=== PATIENT | male | born 1950 | race Caucasian/White ===

== ENCOUNTER 2018-12-18 08:07 | Day surgery (SDC) | payer MEDICARE ==
[~2018-12-18 08:07] MED LIST: Acetaminophen TAB* 325 MG PO ONE; Buffered Lidocaine 1% SYRIN* 1 ML/SYRINGE INTRADERM ONE; Famotidine IV* 10 MG/ML 2 ML (20 mg) IV ONE; Gabapentin CAP(*) 300 MG PO ONE; Lactated Ringers 1000 ML Bag* 1,000 ML IV SCH
[2018-12-18] MEDS ORDERED: Famotidine IV* 10 MG/ML 2 ML (20 mg) ONE (08:38)
[2018-12-18] MEDS ORDERED: Buffered Lidocaine 1% SYRIN* 1 ML/SYRINGE INTRADERM ONE (08:38)
[2018-12-18] MEDS ORDERED: Gabapentin CAP(*) 300 MG ONE (08:38)
[2018-12-18] MEDS ORDERED: Acetaminophen TAB* 325 MG ONE (08:38)
[2018-12-18] MEDS ORDERED: Midazolam* 1 MG/ML 2 ML VIAL (2 MG) ONE (09:24)
[2018-12-18] MEDS ORDERED: fentaNYL* 50 MCG/ML 2 ML VIAL (100 MCG VIAL) ONE (09:24)
[2018-12-18] MEDS ORDERED: Lidocain 1% EPI 1:100,000 * 30 ML MDV ONE (09:55)
[2018-12-18] MEDS ORDERED: Cisatracurium* 2 MG/ML MDV 5 ML ONE (10:10)
[2018-12-18] MEDS ORDERED: Propofol* 10 MG/ML 20 ML BTL ONE (10:23)
[2018-12-18] MEDS ORDERED: Dexamethasone IV* 4 MG/ML 1 ML (4 MG) ONE (10:23)
[2018-12-18] MEDS ORDERED: Succinylcholine* 20 MG/ML 10 ML VIAL ONE (10:23)
[2018-12-18] MEDS ORDERED: PROCHLORPERAZINE INJ 5 MG/ML 2 ML VIAL IV PRN (10:29)
[2018-12-18] MEDS ORDERED: fentaNYL* 50 MCG/ML 2 ML VIAL (100 MCG VIAL) IV PRN (10:29)
[2018-12-18] MEDS ORDERED: diPHENhydraMINE IV* 50 MG/ML 1 ml VIAL (BENADRYL) IV PRN (10:29)
[2018-12-18] MEDS ORDERED: HYDROcodone/ACETAMIN 5-325 MG* 1 TAB PO PRN ×2 (10:29)
[2018-12-18] MEDS ORDERED: Naloxone* 0.4 MG/ML 1 ML VIAL IV PRN (10:29)
[2018-12-18] MEDS ORDERED: Ondansetron INJ* 2 MG/ML VIAL IV PRN (10:29)
[2018-12-18] MEDS ORDERED: Acetaminophen TAB* 325 MG PO PRN (10:29)
[2018-12-18] MEDS ORDERED: DiMENhydriNATE IV* 50 MG/ML VIAL IV PUSH PRN (10:29)
[2018-12-18] MEDS ORDERED: Levalbuterol 0.63MG/3ML NEB* UNIT OF USE INH PRN (10:29)
[2018-12-18 12:21] VITALS: BP 142/81
--- NOTE | 2018-12-18 13:05 | OP ---
DATE OF OPERATION: 12/18/18 - SD DATE OF : 48 SURGEON: Brien Galdamez MD. SOUND PRINTER: Dr. Huerta. 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 OPERATIVE PROCEDURE: Excision of deep neck mass on the right side under general endotracheal anesthesia. COMPLICATIONS: None. DISPOSITION: Good. SPECIMEN: Right neck mass. BLOOD LOSS: Less than 5 mL. DESCRIPTION OF PROCEDURE: The patient was taken to the operating room, prepared for a right superficial parotidectomy. General anesthesia induced and he was orotracheally intubated. A NIM monitor was placed for orbicularis kenneth and orbicularis oculi and the incision was demarcated for a right superficial parotidectomy and injected with 1% lidocaine 1:100,000 epinephrine. He was prepped with Betadine and draped in sterile fashion. 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 Incision was made with a 15 blade through the skin and platysma muscle and then dissection was taken down elevating the superior fascia in a way to protect the marginal mandibular nerve. This brought us right to the mass along the anterior border to the sternocleidomastoid muscle just at the tip of the parotid gland. I was able to do some blunt dissection, bipolar, and we were able to excise the tumor without doing the entire parotidectomy. Hemostasis was ensured, and the wound was closed with 3-0 deep dermal Vicryls and a running locking 4-0 Prolene. The patient tolerated this well. No complications. Transferred to the recovery room in stable condition. [id number]/CPS #: [id number] MTDD
== END 2018-12-18 12:35 | disposition home or self-care (01) ==
LOC: OR 08:07
PROVIDERS: ATTEND Otolaryngology
DX: D11.7 Benign neoplasm of other major salivary glands (principal); Z72.0 Tobacco use; R05 Cough; Z87.442 Personal history of urinary calculi
CPT/HCPCS: 88307; A9270-GY; J0330; J1100; J2250; J2704; J3010

== ENCOUNTER 2019-12-05 10:43 | Emergency (ER) | payer MEDICARE ==
[2019-12-05 12:09] VITALS: BP 145/81
--- NOTE | 2019-12-05 12:54 | UC ---
Complaint Male HPI - HPI Summary HPI Summary: ONSET OF RIGHT GROIN PAIN ABOUT 3 WEEKS AGO AFTER SHOVELING SNOW. SYMPTOMS WERE INTERMITTENT AND MILD. PATIENT THOUGHT HE PULLED A MUSCLE. ABOUT 10 DAYS AGO HE SHOVELED MORE SNOW AND THE PAIN WORSENED. SINCE THEN HE HAS HAD INCREASING RIGHT GROIN PAIN THAT IS WORSE WHEN HE STANDS UP AND WALKS AROUND. BETTER WHEN HE SITS DOWN OR LAYS DOWN. NO NOTICEABLE LUMP. NO PREVIOUS HISTORY OF AN INGUINAL HERNIA. - History of Current Complaint Chief Complaint: UCAbdominalPain Stated Complaint: ABDOMINAL PAIN LEG PAIN Time Seen by Provider: 12/05/19 12:07 Hx Obtained From: Patient Onset/Duration: Gradual Onset, Lasting Weeks, Still Present Severity Initially: Moderate Severity Currently: Moderate Pain Intensity: 7 Pain Scale Used: 0-10 Numeric Location: Groin - RIGHT Character: Sharp Aggravating Factor(s): Straining - STANDING, WALKING Alleviating Factor(s): Other - SITTING, LAYING DOWN Associated Signs And Symptoms: Negative: Back Pain, Fever, Dysuria, Nausea - Allergies/Home Medications Allergies/Adverse Reactions: Allergies Allergy/AdvReac Type Severity Reaction Status Date / Time No Known Allergies Allergy Verified 12/05/19 12:08 Home Medications: Home Medications NK [No Home Medications Reported] 09/16/13 [History Confirmed 12/05/19] PMH/Surg Hx/FS Hx/Imm Hx Previously Healthy: Yes - Surgical History Surgical History: Yes Surgery Procedure, Year, and Place: cleft palate REPAIR, rt ankle ligament surgery 1976,. 2011-RIGHT EYE CATARACT REMOVED WITH LENS IMPLANT. throat lump removed 2018 - Family History Known Family History: Positive: Non-Contributory - Social History Alcohol Use: Daily Alcohol Amount: 1 GLASS OF WINE DAILY Substance Use Type: None Smoking Status (MU): Current Every Day Smoker Type: Cigarettes Amount Used/How Often: <1 PPD Have You Smoked in the Last Year: Yes Review of Systems All Other Systems Reviewed And Are Negative: Yes Constitutional: Positive: Negative Skin: Positive: Negative Respiratory: Positive: Negative Cardiovascular: Positive: Negative Gastrointestinal: Positive: Negative Genitourinary: Positive: Other - RIGHT GROIN PAIN. Negative: Dysuria, Hematuria , Frequency, Urgency Physical Exam Triage Information Reviewed: Yes Appearance: Well-Appearing, No Pain Distress, Well-Nourished Vital Signs: Initial Vital Signs Temp 97.1 F 12/05/19 12:02 Pulse 81 12/05/19 12:02 Resp 16 12/05/19 12:02 BP 145/81 12/05/19 12:02 Pulse Ox 95 12/05/19 12:02 Laboratory Tests 12/05/19 12:57 POC Urine Color Yellow POC Urine Clarity Clear POC Urine pH 5.5 POC Ur Specif [place] 1.015 POC Urine Protein Negative POC Ur Glucose (UA) Negative POC Urine Ketones Negative POC Urine Blood Negative POC Urine Nitrite Negative POC Urine Bilirubin Negative POC Urine Urobilinogen 0.2 POC U Leukocyte Esteras Negative Vital Signs Reviewed: Yes Eyes: Positive: Conjunctiva Clear ENT: Positive: Hearing grossly normal Neck: Positive: Supple Respiratory: Positive: No respiratory distress, No accessory muscle use Cardiovascular: Positive: Pulses Normal Abdomen Description: Positive: Nontender, Soft Male Genital Exam: Positive: Normal Genitalia, Other - NO INGUINAL LAD OR PALPABLE HERNIA. Negative: Hernia Mass, Scrotum Tenderness (R), Scrotum Tenderness (L), Testicular Tenderness (R), Testicular Tenderness (L) Musculoskeletal: Positive: No Edema Neurological: Positive: Alert Psychological: Positive: Age Appropriate Behavior Skin: Negative: Breakdown Complaint Male Course/Dx - Course Course Of Treatment: BASED ON PATIENT'S HISTORY AND DESCRIPTION OF SYMPTOMS I'M CONCERNED THAT HE IS DEVELOPING A RIGHT INGUINAL HERNIA. NO PALPABLE MASS ON EXAM TODAY HOWEVER IT MAY BE EARLY. RECOMMEND TRANSFER TO THE ER FOR IMAGING AND FURTHER EVALUATION. PATIENT STATES HE WILL THINK ABOUT IT. I DISCUSSED WITH HIM THAT IF HIS PAIN CONTINUES TO WORSEN OR BECOMES CONSTANT THAT HE COULD HAVE AN INCARCERATED HERNIA WHICH IS A SURGICAL EMERGENCY AND IF LEFT UNTREATED CAN LEAD TO A POOR OUTCOME. PATIENT VERBALIZED UNDERSTANDING AND SAYS HE WILL GO TO THE ER AT A LATER TIME. I CALLED THE PATIENT'S PCP OFFICE (DR. OVALLE) AND NOTIFIED THEM OF THE PATIENT'S VISIT HERE. THEY TELL ME THAT HE CALLED THEIR OFFICE WELL AND THEY ADVISED HIM TO GO TO THE EMERGENCY ROOM ALSO. - Differential Dx/Diagnosis Provider Diagnosis: Right inguinal pain Discharge ED - Sign-Out/Discharge Documenting (check all that apply): Patient Departure All imaging exams completed and their final reports reviewed: No Studies - Discharge Plan Condition: Stable Disposition: TRANS [facility] CARE [facility] Patient Education Materials: Inguinal Hernia (ED), Groin Pain (ED) Referrals: Lisa Ovalel MD [Primary Care Provider] - Additional Instructions: BASED ON YOUR SYMPTOMS I AM CONCERNED THAT YOU MAY HAVE AN EARLY INGUINAL HERNIA. WE ARE UNABLE TO ADEQUATELY EVALUATE FOR THIS IN THE URGENT CARE. I RECOMMEND THAT YOU GO [place] [facility] [place] EVALUATION TO EITHER CONFIRM THIS DIAGNOSIS OR RULE IT OUT. IF THE PAIN BECOMES WORSE OR DOES NOT RESOLVE WHEN YOU SIT/LAY DOWN THE HERNIA COULD BE BECOMING STUCK WHICH IS A SURGICAL EMERGENCY. - Billing Disposition and Condition Condition: STABLE Disposition: Trans Higher Lvl of Care Fac
== END 2019-12-05 13:18 | disposition short-term general hospital (02) ==
LOC: UCEAST 10:43
DX: R10.30 Lower abdominal pain, unspecified (principal); F17.210 Nicotine dependence, cigarettes, uncomplicated; M79.606 Pain in leg, unspecified
CPT/HCPCS: 81003; 99212; G0463

== ENCOUNTER 2019-12-05 14:54 | Emergency (ER) | payer MEDICARE ==
--- NOTE | 2019-12-05 15:37 | ED ---
GI/ HPI - HPI Summary HPI Summary: 69-year-old male presents with intermittent right inguinal pain for the past couple weeks. Started when he started shoveling. States he only hurts when he walks. He has no masses to the area. No nausea vomiting. No bowel pain. No urinary symptoms. No testicular pain. No diarrhea constipation. He does not have pain when sitting or standing. No history of a hernia. No history of surgery to this area. Has no medical conditions. - History of Current Complaint Chief Complaint: EDGeneral Time Seen by Provider: 12/05/19 15:31 Stated Complaint: GROIN PAIN PER PT Pain Intensity: 7 - Allergy/Home Medications Allergies/Adverse Reactions: Allergies Allergy/AdvReac Type Severity Reaction Status Date / Time No Known Allergies Allergy Verified 12/05/19 15:12 Home Medications: Home Medications NK [No Home Medications Reported] 12/05/19 [History Confirmed 12/05/19] PMH/Surg Hx/FS Hx/Imm Hx Endocrine/Hematology History: Denies: Hx Diabetes Cardiovascular History: Denies: Hx Hypertension - BORDERLINE, Hx Pacemaker/ICD, Other Cardiovascular Problems/Disorders Respiratory History: Denies: Other Respiratory Problems/Disorders GI History: Denies: Other GI Disorders History: Reports: Hx Kidney Stones - X2- IN THE 1970S Denies: Hx Dialysis, Hx Renal Disease Musculoskeletal History: Denies: Hx Rheumatoid Arthritis, Hx Osteoporosis Sensory History: Reports: Hx Cataracts - RIGHT EYE, Hx Contacts or Glasses - DRIVING GLASSES Denies: Hx Hearing Aid Opthamlomology History: Reports: Hx Cataracts - RIGHT EYE, Hx Contacts or Glasses - DRIVING GLASSES Neurological History: Denies: Other Neuro Impairments/Disorders Psychiatric History: Denies: Hx Panic Disorder - Surgical History Surgery Procedure, Year, and Place: cleft palate REPAIR, rt ankle ligament surgery 1976,. 2012-RIGHT EYE CATARACT REMOVED WITH LENS IMPLANT. throat lump removed 2019 Hx Anesthesia Reactions: No Infectious Disease History: No Infectious Disease History: Denies: Traveled Outside the [place] in Last 30 Days - Family History Known Family History: Positive: Non-Contributory - Social History Alcohol Use: Daily Alcohol Amount: 1 GLASS OF WINE DAILY Substance Use Type: Reports: None Hx Tobacco Use: Yes Smoking Status (MU): Current Every Day Smoker Type: Cigarettes Amount Used/How Often: <1 PPD Have You Smoked in the Last Year: Yes Review of Systems Negative: Fever Negative: Chest Pain Negative: Shortness Of Breath Positive: Other - right inguinal pain. Negative: Abdominal Pain, Vomiting, Diarrhea, Nausea All Other Systems Reviewed And Are Negative: Yes Physical Exam Triage Information Reviewed: Yes Vital Signs On Initial Exam: Initial Vitals Temp Pulse Resp BP Pulse Ox 98.1 F 96 18 160/93 95 12/05/19 15:08 12/05/19 15:08 12/05/19 15:08 12/05/19 15:08 12/05/19 15:08 Vital Signs Reviewed: Yes Appearance: Positive: Well-Appearing Skin: Positive: Warm, Dry Head/Face: Positive: Normal Head/Face Inspection Eyes: Positive: Normal, Conjunctiva Clear ENT: Positive: Pharynx normal Respiratory/Lung Sounds: Positive: Clear to Auscultation, Breath Sounds Present Cardiovascular: Positive: Normal, RRR Abdomen Description: Positive: Nontender, Soft, Other: - nontender in right inguinal area, no mass felt Bowel Sounds: Positive: Present Musculoskeletal: Positive: Normal Neurological: Positive: Normal Psychiatric: Positive: Normal Procedures - Sedation Patient Received Moderate/Deep Sedation with Procedure: No Diagnostics - Vital Signs Vital Signs Temp Pulse Resp BP Pulse Ox 12/05/19 15:08 98.1 F 96 18 160/93 95 - Laboratory Lab Statement: Any lab studies that have been ordered have been reviewed, and results considered in the medical decision making process. - Ultrasound No standard instances Ultrasound Interpretation Completed By: Radiologist Summary of Ultrasound Findings: #. In the general region of discomfort there is a fat-containing probable direct inguinal hernia visible on Valsalva maneuver measuring up to 2.1 cm maximum dimension which reduces with release of Valsalva maneuver. The hernia exits through an approximate 1 cm diameter fascia defect. No bowel containing hernia evident. GIGU Course/Dx - Course Course Of Treatment: 69-year-old male presents with intermittent right inguinal pain for the past couple weeks. Started when he started shoveling. States he only hurts when he walks. He has no masses to the area. No nausea vomiting. No bowel pain. No urinary symptoms. No testicular pain. No diarrhea constipation. He does not have pain when sitting or standing. No history of a hernia. No history of surgery to this area. Has no medical conditions. On exam no masses felt. Nontender abdomen. Ultrasound shows hernia reducible. gave referral to surgery. told not to lift anything. patient understand and agrees with plan. - Diagnoses Provider Diagnoses: Inguinal hernia Discharge ED - Sign-Out/Discharge Documenting (check all that apply): Patient Departure - Discharge Plan Condition: Good Disposition: HOME Patient Education Materials: Inguinal Hernia (ED) Referrals: Lisa Ovalle MD [Primary Care Provider] - Todd Easton MD [Medical Doctor] - Additional Instructions: follow up with surgery place ice on the area take tyenlol as needed for pain avoid lifting objects Return to ED if develop any new or worsening symptoms - Billing Disposition and Condition Condition: GOOD Disposition: Home
[2019-12-05 17:05] VITALS: BP 143/88
== END 2019-12-05 17:04 | disposition home or self-care (01) ==
LOC: ED 14:54
DX: K40.90 Unilateral inguinal hernia, without obstruction or gangrene, not specified as recurrent (principal); F17.210 Nicotine dependence, cigarettes, uncomplicated
CPT/HCPCS: 76705; 99282

== ENCOUNTER 2020-05-03 12:02 | Inpatient (IN) ==
[2020-05-03] MEDS ORDERED: Dexamethasone IV 4 MG/ML VIAL 1 ml VIAL IV SLOW PU ONE (13:35)
[2020-05-03] MEDS ORDERED: levETIRAcetam 1000MG IVPREMIX 1,000 MG/100 ML BAG IVPB ONE (14:02)
[2020-05-03] MEDS ORDERED: Ondansetron 4 mg VIAL 2 MG/ML 2 ml VIAL IV PRN (14:05)
[2020-05-03] MEDS ORDERED: Nicotine GUM 4MG FRUIT FLAVOR PO PRN (14:17)
[2020-05-03 14:19] LABS: ALT 12 U/L (7-52); AST 12 U/L (13-39); Albumin 3.3 g/dL (3.2-5.2); Albumin/Globulin Ratio 1.2 (1-3); Alkaline Phosphatase 94 U/L (34-104); Anion Gap 4 mmol/L (2-11); BUN/Creatinine Ratio 12.7 (8-20); Blood Urea Nitrogen 10 mg/dL (6-24); CO2 Carbon Dioxide 28 mmol/L (22-32); Calcium 8.7 mg/dL (8.6-10.3); Chloride 104 mmol/L (101-111); EGFR African American 117.3 (>60); Globulin 2.7 g/dL (2-4); Glucose 103 mg/dL (70-100); Potassium 4.2 mmol/L (3.5-5.0); Sodium 136 mmol/L (135-145)
[2020-05-03 14:39] LABS: Troponin I 0.07 ng/mL (<0.03)
[2020-05-03 14:43] LABS: Alcohol, S < 10 mg/dL (<10)
[2020-05-03 14:44] LABS: ABS Basophils 0.1 10^3/ul (0-0.2); ABS Eosinophils 0.4 10^3/ul (0-0.6); ABS Lymphocytes 0.5 10^3/ul (1.0-4.8); ABS Neutrophils 13.7 10^3/ul (1.5-7.7); Eosinophil % 2.2 %; Hematocrit 39 % (42-52); Hemoglobin 13.2 g/dL (14.0-18.0); Lymphocyte % 3.2 %; Mean Corpuscular HGB Conc 34 g/dL (31-36); Mean Corpuscular Hemoglobin 30 pg (27-31); Mean Corpuscular Volume 89 fL (80-94); Mean Platelet Volume 8.2 fL (7.4-10.4); Platelet Count 271 10^3/uL (150-450); Red Blood Count 4.44 10^6 /uL (4.18-5.48); Red Cell Distribution Width 14 % (10-15); White Blood Count 15.6 10^3/uL (3.5-10.8)
[2020-05-03 14:44] LABS: Urine Appearance Clear; Urine Bilirubin Negative (Negative); Urine Blood 1+ (Negative); Urine Color Yellow; Urine Glucose Negative (Negative); Urine Ketones Trace (Negative); Urine Nitrite Negative (Negative); Urine Protein Negative (Negative); Urine Specific Gravity 1.008 (1.010-1.030); Urine Urobilinogen Negative (Negative)
[2020-05-03] MEDS ORDERED: Iohexol 300 (CONTRAST) 10 ML SDV IV ONE (15:00)
[2020-05-03 15:18] LABS: Urine Bacteria Absent (Absent); Urine Red Blood Cell Trace(0-2/hpf) (Absent); Urine White Blood Cell Trace(0-5/hpf) (Absent)
[2020-05-03 15:36] LABS: Vitamin B12 266 pg/mL (180-914)
[2020-05-03] MEDS ORDERED: Gadoteridol (CONTRAST) 279.3 MG/ML 10 ML IV ONE (16:30)
[2020-05-03] MEDS ORDERED: Dexamethasone IV 4 MG/ML 5 ML VIAL (20 MG) IVPB SCH (20:00)
[2020-05-03] MEDS: NS 0.9% 1000 ml BAG 1,000 ML IV SCH (20:22)
[2020-05-03] MEDS: Dexamethasone IV 4 MG/ML 5 ML VIAL (20 MG) SCH (22:33)
[2020-05-03] MEDS: Enoxaparin 40 MG/0.4 ML SYR SUBCUT SCH (22:33)
[2020-05-03] MEDS: Nicotine PATCH 14 MG/24 HR PATCH TRANSDERM SCH (23:00)
[2020-05-04] MEDS: levETIRAcetam 500 MG IVPREMIX 500 MG/100 ML BAG IV SCH ×2 (04:00→14:09)
[2020-05-04] MEDS: Dexamethasone IV 4 MG/ML 5 ML VIAL (20 MG) SCH ×4 (05:29→20:57)
[2020-05-04] MEDS ORDERED: Perflutren Lipid Microsphere 3 ML VIAL ONE (08:01)
[2020-05-04 08:51] LABS: Hematocrit 40 % (42-52); Hemoglobin 13.4 g/dL (14.0-18.0); Mean Corpuscular HGB Conc 33 g/dL (31-36); Mean Corpuscular Hemoglobin 30 pg (27-31); Mean Corpuscular Volume 89 fL (80-94); Mean Platelet Volume 8.1 fL (7.4-10.4); Platelet Count 284 10^3/uL (150-450); Red Blood Count 4.51 10^6 /uL (4.18-5.48); Red Cell Distribution Width 14 % (10-15); White Blood Count 18.2 10^3/uL (3.5-10.8)
[2020-05-04 09:10] LABS: Anion Gap 13 mmol/L (2-11); BUN/Creatinine Ratio 18.7 (8-20); Blood Urea Nitrogen 14 mg/dL (6-24); CO2 Carbon Dioxide 21 mmol/L (22-32); Calcium 8.2 mg/dL (8.6-10.3); Chloride 104 mmol/L (101-111); EGFR African American 124.6 (>60); Glucose 124 mg/dL (70-100); Magnesium 1.8 mg/dL (1.9-2.7); Potassium 4.1 mmol/L (3.5-5.0); Sodium 138 mmol/L (135-145)
[2020-05-04 09:17] LABS: ABS Lymphocytes 0.4 10^3/ul (1.0-4.8); ABS Monocytes 0.3 10^3/ul (0-0.8); ABS Neutrophils 17.5 10^3/ul (1.5-7.7); Eosinophil % 0.1 %; Lymphocyte % 2.2 %
[2020-05-04] MEDS: Nicotine PATCH 14 MG/24 HR PATCH TRANSDERM SCH (09:36)
[2020-05-04] MEDS: Cyanocobalamin INJ 1,000 MCG/ML VIAL 1 ML VIAL IM SCH (09:37)
[2020-05-04 09:41] LABS: Troponin I 0.05 ng/mL (<0.03)
[2020-05-04] MEDS ORDERED: Magnesium Sulfate 2 gm BAG 2 GM/50 ML BAG IVPB ONE (12:09)
[2020-05-04] MEDS: Enoxaparin 40 MG/0.4 ML SYR SUBCUT SCH (14:04)
[2020-05-04] MEDS: NS 0.9% 1000 ml BAG 1,000 ML IV SCH (14:11)
[2020-05-04] MEDS ORDERED: Gadoteridol (CONTRAST) 279.3 MG/ML 10 ML IV ONE (18:02)
[2020-05-05] MEDS: levETIRAcetam 500 MG IVPREMIX 500 MG/100 ML BAG IV SCH ×2 (02:42→16:22)
[2020-05-05] MEDS: Dexamethasone IV 4 MG/ML 5 ML VIAL (20 MG) SCH ×4 (04:53→21:47)
[2020-05-05] MEDS ORDERED: Lactated Ringers 1000 ml BAG 1,000 ML IV SCH (06:00)
[2020-05-05] MEDS ORDERED: Buffered Lidocaine 1% SYRIN 1 ml INTRADERM ONE (06:00)
[2020-05-05 08:09] LABS: Hematocrit 38 % (42-52); Hemoglobin 12.6 g/dL (14.0-18.0); Mean Corpuscular HGB Conc 34 g/dL (31-36); Mean Corpuscular Hemoglobin 30 pg (27-31); Mean Corpuscular Volume 89 fL (80-94); Mean Platelet Volume 8.2 fL (7.4-10.4); Platelet Count 286 10^3/uL (150-450); Red Blood Count 4.22 10^6 /uL (4.18-5.48); Red Cell Distribution Width 14 % (10-15); White Blood Count 23.5 10^3/uL (3.5-10.8)
[2020-05-05 08:16] LABS: INR 0.99 (0.82-1.09)
[2020-05-05 08:28] LABS: BUN/Creatinine Ratio 23.9 (8-20); Calcium 8.1 mg/dL (8.6-10.3); EGFR African American 141.9 (>60); EGFR Non-African American 117.3 (>60); Potassium 4.4 mmol/L (3.5-5.0)
[2020-05-05] MEDS: Cyanocobalamin INJ 1,000 MCG/ML VIAL 1 ML VIAL IM SCH (10:09)
[2020-05-05] MEDS: Nicotine PATCH 14 MG/24 HR PATCH TRANSDERM SCH (10:25)
[2020-05-05] MEDS: Enoxaparin 40 MG/0.4 ML SYR SUBCUT SCH (16:23)
[2020-05-06] MEDS: levETIRAcetam 500 MG IVPREMIX 500 MG/100 ML BAG IV SCH ×2 (02:26→14:58)
[2020-05-06] MEDS: Dexamethasone IV 4 MG/ML 5 ML VIAL (20 MG) SCH ×3 (04:26→14:58)
[2020-05-06 05:12] LABS: Hematocrit 37 % (42-52); Hemoglobin 12.2 g/dL (14.0-18.0); Mean Corpuscular HGB Conc 33 g/dL (31-36); Mean Corpuscular Hemoglobin 29 pg (27-31); Mean Corpuscular Volume 89 fL (80-94); Mean Platelet Volume 7.8 fL (7.4-10.4); Platelet Count 264 10^3/uL (150-450); Red Blood Count 4.21 10^6 /uL (4.18-5.48); Red Cell Distribution Width 14 % (10-15); White Blood Count 19.5 10^3/uL (3.5-10.8)
[2020-05-06 05:27] LABS: BUN/Creatinine Ratio 32.8 (8-20); EGFR African American 158.1 (>60); EGFR Non-African American 130.7 (>60); Potassium 4.6 mmol/L (3.5-5.0)
[2020-05-06] MEDS: Nicotine PATCH 14 MG/24 HR PATCH TRANSDERM SCH (10:09)
[2020-05-06] MEDS: Cyanocobalamin INJ 1,000 MCG/ML VIAL 1 ML VIAL IM SCH (10:10)
[2020-05-06 11:19] VITALS: BP 120/56
[2020-05-06] MEDS: Enoxaparin 40 MG/0.4 ML SYR SUBCUT SCH (14:58)
== END 2020-05-06 16:10 | disposition home or self-care (01) | DRG 54 ==
LOC: ED 12:02 → MED 12:02 → OBSVTOIN 20:05
PROVIDERS: ADMIT Internal Medicine; ATTEND Internal Medicine

== ENCOUNTER 2020-05-21 10:10 | Inpatient (IN) ==
[2020-05-21 11:02] LABS: Hematocrit 44 % (42-52); Hemoglobin 14.6 g/dL (14.0-18.0); Mean Corpuscular HGB Conc 33 g/dL (31-36); Mean Corpuscular Hemoglobin 29 pg (27-31); Mean Corpuscular Volume 89 fL (80-94); Mean Platelet Volume 8.3 fL (7.4-10.4); Platelet Count 172 10^3/uL (150-450); Red Blood Count 4.97 10^6 /uL (4.18-5.48); Red Cell Distribution Width 14 % (10-15); White Blood Count 33.6 10^3/uL (3.5-10.8)
[2020-05-21 11:08] LABS: ABS Eosinophils 0.3 10^3/ul (0-0.6); ABS Lymphocytes 0.4 10^3/ul (1.0-4.8); ABS Monocytes 0.9 10^3/ul (0-0.8); ABS Neutrophils 30.7 10^3/ul (1.5-7.7); Eosinophil % 0.9 %; Lymphocyte % 1.4 %
[2020-05-21 11:14] LABS: Albumin 3.3 g/dL (3.2-5.2); Albumin/Globulin Ratio 1.4 (1-3); BUN/Creatinine Ratio 31.4 (8-20); Calcium 8.6 mg/dL (8.6-10.3); EGFR African American 134.9 (>60); EGFR Non-African American 111.5 (>60); Globulin 2.4 g/dL (2-4); Potassium 4.6 mmol/L (3.5-5.0); Total Bilirubin 0.9 mg/dL (0.2-1.0); Total Protein 5.7 g/dL (6.4-8.9)
[2020-05-21 12:38] LABS: Urine Appearance Clear; Urine Bilirubin Negative (Negative); Urine Blood Negative (Negative); Urine Color Yellow; Urine Glucose Negative (Negative); Urine Ketones Negative (Negative); Urine Nitrite Negative (Negative); Urine Protein Negative (Negative); Urine Specific Gravity 1.023 (1.010-1.030); Urine Urobilinogen Negative (Negative)
[2020-05-21] MEDS ORDERED: Piperacillin/Tazobac ADVAN 3.375 GM in NS 0.9% 100 ml BAG 100 ML IVPB ONE (14:39)
[2020-05-21] MEDS ORDERED: Zosyn per Pharmacy NOTE FOLLOW UP SCH (15:00)
[2020-05-21] MEDS ORDERED: Ondansetron 4 mg VIAL 2 MG/ML 2 ml VIAL IV PRN (16:27)
[2020-05-21] MEDS: levETIRAcetam 500 MG IVPREMIX 500 MG/100 ML BAG IV SCH (18:09)
[2020-05-21] MEDS: NS 0.9% 1000 ml BAG 1,000 ML IV SCH (18:35)
[2020-05-21] MEDS: ZOSYN 3.375 GM Q8H per EXTENDED INFUSION IV SCH (21:09)
[2020-05-21] MEDS: Dexamethasone IV 4 MG/ML VIAL 1 ml VIAL IV SLOW PU SCH (21:10)
[2020-05-22] MEDS: NS 0.9% 1000 ml BAG 1,000 ML IV SCH (03:18)
[2020-05-22] MEDS: levETIRAcetam 500 MG IVPREMIX 500 MG/100 ML BAG IV SCH ×2 (04:39→16:58)
[2020-05-22 04:49] LABS: Hematocrit 37 % (42-52); Hemoglobin 12.4 g/dL (14.0-18.0); Mean Corpuscular HGB Conc 34 g/dL (31-36); Mean Corpuscular Hemoglobin 30 pg (27-31); Mean Corpuscular Volume 89 fL (80-94); Mean Platelet Volume 8.3 fL (7.4-10.4); Platelet Count 131 10^3/uL (150-450); Red Blood Count 4.16 10^6 /uL (4.18-5.48); Red Cell Distribution Width 14 % (10-15); White Blood Count 25.8 10^3/uL (3.5-10.8)
[2020-05-22 04:57] LABS: Albumin 2.8 g/dL (3.2-5.2); Albumin/Globulin Ratio 1.3 (1-3); BUN/Creatinine Ratio 27.3 (8-20); Calcium 8.2 mg/dL (8.6-10.3); EGFR African American 178.2 (>60); EGFR Non-African American 147.3 (>60); Globulin 2.1 g/dL (2-4); Potassium 4.4 mmol/L (3.5-5.0); Total Bilirubin 0.7 mg/dL (0.2-1.0); Total Protein 4.9 g/dL (6.4-8.9)
[2020-05-22] MEDS: ZOSYN 3.375 GM Q8H per EXTENDED INFUSION IV SCH ×3 (05:03→21:18)
[2020-05-22 09:00] LABS: ABS Basophils 0.1 10^3/ul (0-0.2); ABS Eosinophils 0.2 10^3/ul (0-0.6); ABS Lymphocytes 0.3 10^3/ul (1.0-4.8); ABS Monocytes 0.7 10^3/ul (0-0.8); ABS Neutrophils 24.5 10^3/ul (1.5-7.7); Eosinophil % 0.6 %; Lymphocyte % 1.1 %
[2020-05-22] MEDS: Dexamethasone IV 4 MG/ML VIAL 1 ml VIAL IV SLOW PU SCH ×2 (09:23→21:18)
[2020-05-22] MEDS ORDERED: Buffered Lidocaine 1% SYRIN 1 ml INTRADERM ONE ×2 (11:14→11:40)
[2020-05-22] MEDS ORDERED: Famotidine IV 10 MG/ML 2 ml VIAL (20 mg) IV ONE (11:14)
[2020-05-22] MEDS ORDERED: Bupivacaine 0.25% SDV 30 ML ONE (11:30)
[2020-05-22] MEDS ORDERED: Midazolam 2 mg/2 ml VIAL 1 mg/ml 2 ml VIAL (2 mg) ONE ×2 (11:47→12:18)
[2020-05-22] MEDS ORDERED: Lactated Ringers 1000 ml BAG 1,000 ML IV SCH (12:00)
[2020-05-22] MEDS ORDERED: Famotidine IV 10 MG/ML 2 ml VIAL (20 mg) ONE (12:12)
[2020-05-22] MEDS ORDERED: Rocuronium 50 mg VIAL 10 mg/ml 5 ml VIAL (50 mg) ONE (12:17)
[2020-05-22] MEDS ORDERED: fentaNYL 100 mcg/2 ml 50 MCG/ML VIAL ONE ×3 (12:17→15:26)
[2020-05-22] MEDS ORDERED: Lidocaine 2% PF 5 ML VIAL ONE (12:17)
[2020-05-22] MEDS ORDERED: Propofol 10 MG/ML 20 ML BTL ONE (12:17)
[2020-05-22] MEDS ORDERED: EPHEDrine (Pressors) 50 MG/ML VIAL ONE (12:44)
[2020-05-22] MEDS ORDERED: Acetaminophen IV 1 GM/100ML 100 ML ONE (14:22)
[2020-05-22] MEDS ORDERED: Ondansetron 4 mg VIAL 2 MG/ML 2 ml VIAL ONE (14:27)
[2020-05-22] MEDS ORDERED: Ondansetron 4 mg VIAL 2 MG/ML 2 ml VIAL IV PRN (14:33)
[2020-05-22] MEDS ORDERED: Naloxone 0.4 mg VIAL 0.4 mg/ml 1 ml VIAL IV PRN (14:33)
[2020-05-22] MEDS ORDERED: DiMENhydriNATE IV 50 mg/ml 1 ml VIAL IV PUSH PRN (14:33)
[2020-05-22] MEDS ORDERED: Naloxone 0.4 mg VIAL 0.4 mg/ml 1 ml VIAL IV PUSH PRN (15:10)
[2020-05-22] MEDS: fentaNYL 100 mcg/2 ml 50 MCG/ML VIAL IV PRN ×4 (15:29→16:02)
[2020-05-22] MEDS ORDERED: D5W 1/2 NS 1000 ml BAG 1,000 ML IV SCH (16:00)
[2020-05-22] MEDS ORDERED: HYDROmorphone PCA 20 MG/20 ML PCA.SYRING PCA SCH (16:00)
[2020-05-22] MEDS: D5NS 0.9% 1000 ml BAG 1,000 ML IV SCH (16:18)
[2020-05-22 19:17] LABS: Urine Appearance Clear; Urine Bilirubin Negative (Negative); Urine Blood 3+ (Negative); Urine Color Yellow; Urine Glucose Negative (Negative); Urine Ketones Negative (Negative); Urine Nitrite Negative (Negative); Urine Protein Negative (Negative); Urine Specific Gravity 1.027 (1.010-1.030); Urine Urobilinogen Negative (Negative)
[2020-05-22 19:40] LABS: Urine Bacteria Absent (Absent); Urine Red Blood Cell 3+(>10/hpf) (Absent); Urine White Blood Cell Absent (Absent)
[2020-05-23] MEDS: D5NS 0.9% 1000 ml BAG 1,000 ML IV SCH ×3 (00:58→16:21)
[2020-05-23] MEDS: levETIRAcetam 500 MG IVPREMIX 500 MG/100 ML BAG IV SCH ×2 (04:54→17:27)
[2020-05-23] MEDS: ZOSYN 3.375 GM Q8H per EXTENDED INFUSION IV SCH ×3 (04:54→21:20)
[2020-05-23 07:28] LABS: Albumin 2.2 g/dL (3.2-5.2); Albumin/Globulin Ratio 1.2 (1-3); BUN/Creatinine Ratio 17.7 (8-20); Calcium 7.6 mg/dL (8.6-10.3); EGFR African American 155.2 (>60); EGFR Non-African American 128.3 (>60); Globulin 1.9 g/dL (2-4); Potassium 4.4 mmol/L (3.5-5.0); Total Bilirubin 0.6 mg/dL (0.2-1.0); Total Protein 4.1 g/dL (6.4-8.9)
[2020-05-23 07:49] LABS: Hematocrit 34 % (42-52); Hemoglobin 11.3 g/dL (14.0-18.0); Mean Corpuscular HGB Conc 34 g/dL (31-36); Mean Corpuscular Hemoglobin 30 pg (27-31); Mean Corpuscular Volume 90 fL (80-94); Mean Platelet Volume 8.4 fL (7.4-10.4); Platelet Count 105 10^3/uL (150-450); Red Blood Count 3.76 10^6 /uL (4.18-5.48); Red Cell Distribution Width 14 % (10-15); White Blood Count 15.2 10^3/uL (3.5-10.8)
[2020-05-23] MEDS: Dexamethasone IV 4 MG/ML VIAL 1 ml VIAL IV SLOW PU SCH (09:17)
[2020-05-23] MEDS ORDERED: HYDROmorphone 1 MG/1 ML SYRINGE IV PRN (11:08)
[2020-05-23] MEDS ORDERED: Acetaminophen IV 1 GM/100ML 100 ML IVPB SCH (11:30)
[2020-05-23] MEDS: Pantoprazole VIAL 40 MG VIAL IV SCH (11:44)
[2020-05-23] MEDS: Enoxaparin 40 MG/0.4 ML SYR SUBCUT SCH (11:44)
[2020-05-23] MEDS: Acetaminophen IV 1 GM/100ML 100 ML IVPB SCH ×2 (13:16→21:21)
[2020-05-23] MEDS: TPN 24 HR with D10W 1000 ml BAG 1,000 ML, Amino Acid Infusion 10% 850 ML, Sterile Water... IV SCH (17:24)
[2020-05-23] MEDS ORDERED: Lorazepam PYXIS KEY PRN (19:43)
[2020-05-23] MEDS ORDERED: Dexamethasone IV 4 MG/ML VIAL 1 ml VIAL IV SLOW PU SCH (21:00)
[2020-05-23] MEDS: LORazepam 2 mg VIAL 1 ml IV PUSH PRN (21:20)
[2020-05-24] MEDS: D5NS 0.9% 1000 ml BAG 1,000 ML IV SCH (01:09)
[2020-05-24] MEDS: levETIRAcetam 500 MG IVPREMIX 500 MG/100 ML BAG IV SCH ×2 (04:50→17:45)
[2020-05-24] MEDS: ZOSYN 3.375 GM Q8H per EXTENDED INFUSION IV SCH ×3 (05:14→20:56)
[2020-05-24] MEDS: Acetaminophen IV 1 GM/100ML 100 ML IVPB SCH (05:44)
[2020-05-24 06:11] LABS: ABS Eosinophils 0.3 10^3/ul (0-0.6); ABS Lymphocytes 0.2 10^3/ul (1.0-4.8); ABS Monocytes 0.5 10^3/ul (0-0.8); Eosinophil % 1.7 %; Hematocrit 32 % (42-52); Hemoglobin 10.4 g/dL (14.0-18.0); Mean Corpuscular HGB Conc 33 g/dL (31-36); Mean Corpuscular Hemoglobin 30 pg (27-31); Mean Corpuscular Volume 91 fL (80-94); Mean Platelet Volume 8.2 fL (7.4-10.4); Platelet Count 107 10^3/uL (150-450); Red Cell Distribution Width 15 % (10-15); White Blood Count 15.9 10^3/uL (3.5-10.8)
[2020-05-24 06:33] LABS: Albumin 2.1 g/dL (3.2-5.2); Albumin/Globulin Ratio 1.2 (1-3); BUN/Creatinine Ratio 25.5 (8-20); Calcium 6.9 mg/dL (8.6-10.3); EGFR African American 194.4 (>60); EGFR Non-African American 160.7 (>60); Globulin 1.8 g/dL (2-4); Magnesium 1.5 mg/dL (1.9-2.7); Phosphorus 1.7 mg/dL (2.5-5.0); Potassium 3.6 mmol/L (3.5-5.0); Total Bilirubin 0.4 mg/dL (0.2-1.0); Total Protein 3.9 g/dL (6.4-8.9)
[2020-05-24] MEDS ORDERED: NS 0.9% 500 ml BAG 500 ML IV ONE (07:15)
[2020-05-24 09:00] LABS: BUN/Creatinine Ratio 27.5 (8-20); Calcium 7.8 mg/dL (8.6-10.3); EGFR African American 194.4 (>60); EGFR Non-African American 160.7 (>60); Potassium 3.9 mmol/L (3.5-5.0)
[2020-05-24] MEDS ORDERED: Dexamethasone IV 4 MG/ML VIAL 1 ml VIAL IV SLOW PU SCH (09:00)
[2020-05-24] MEDS ORDERED: Dexamethasone IV 4 MG/ML VIAL 1 ml VIAL ONE (10:39)
[2020-05-24] MEDS: Enoxaparin 40 MG/0.4 ML SYR SUBCUT SCH (10:47)
[2020-05-24] MEDS: Pantoprazole VIAL 40 MG VIAL IV SCH (10:48)
[2020-05-24] MEDS: Dexamethasone IV 4 MG/ML VIAL 1 ml VIAL IV SLOW PU SCH ×2 (10:49→20:54)
[2020-05-24] MEDS: TPN 24 HR with D10W 1000 ml BAG 1,000 ML, Amino Acid Infusion 10% 850 ML, Sterile Water... IV SCH (17:45)
[2020-05-24] MEDS: LORazepam 2 mg VIAL 1 ml IV PUSH PRN (21:09)
[2020-05-25] MEDS: levETIRAcetam 500 MG IVPREMIX 500 MG/100 ML BAG IV SCH ×2 (05:02→17:37)
[2020-05-25] MEDS: ZOSYN 3.375 GM Q8H per EXTENDED INFUSION IV SCH ×3 (05:37→20:05)
[2020-05-25 06:06] LABS: Hematocrit 32 % (42-52); Hemoglobin 10.7 g/dL (14.0-18.0); Mean Corpuscular HGB Conc 34 g/dL (31-36); Mean Corpuscular Hemoglobin 30 pg (27-31); Mean Corpuscular Volume 88 fL (80-94); Mean Platelet Volume 8.6 fL (7.4-10.4); Platelet Count 106 10^3/uL (150-450); Red Blood Count 3.57 10^6 /uL (4.18-5.48); Red Cell Distribution Width 14 % (10-15); White Blood Count 14.1 10^3/uL (3.5-10.8)
[2020-05-25 06:21] LABS: Albumin 2.4 g/dL (3.2-5.2); Albumin/Globulin Ratio 1.1 (1-3); EGFR African American 198.9 (>60); EGFR Non-African American 164.4 (>60); Globulin 2.2 g/dL (2-4); Magnesium 1.8 mg/dL (1.9-2.7); Phosphorus 2.6 mg/dL (2.5-5.0); Potassium 4.1 mmol/L (3.5-5.0); Total Bilirubin 0.4 mg/dL (0.2-1.0); Total Protein 4.6 g/dL (6.4-8.9)
[2020-05-25 07:20] LABS: ABS Eosinophils 0.2 10^3/ul (0-0.6); ABS Lymphocytes 0.2 10^3/ul (1.0-4.8); ABS Monocytes 0.4 10^3/ul (0-0.8); ABS Neutrophils 13.3 10^3/ul (1.5-7.7); Eosinophil % 1.1 %; Lymphocyte % 1.5 %
[2020-05-25] MEDS: Dexamethasone IV 4 MG/ML VIAL 1 ml VIAL IV SLOW PU SCH ×2 (09:37→20:00)
[2020-05-25] MEDS: Pantoprazole VIAL 40 MG VIAL IV SCH (09:37)
[2020-05-25] MEDS: Enoxaparin 40 MG/0.4 ML SYR SUBCUT SCH (11:17)
[2020-05-26] MEDS: levETIRAcetam 500 MG IVPREMIX 500 MG/100 ML BAG IV SCH (04:41)
[2020-05-26] MEDS: ZOSYN 3.375 GM Q8H per EXTENDED INFUSION IV SCH ×2 (05:04→13:40)
[2020-05-26] MEDS: Dexamethasone IV 4 MG/ML VIAL 1 ml VIAL IV SLOW PU SCH (08:31)
[2020-05-26] MEDS: Pantoprazole VIAL 40 MG VIAL IV SCH (08:32)
[2020-05-26 09:54] LABS: Hematocrit 37 % (42-52); Hemoglobin 12.5 g/dL (14.0-18.0); Mean Corpuscular HGB Conc 34 g/dL (31-36); Mean Corpuscular Hemoglobin 30 pg (27-31); Mean Corpuscular Volume 88 fL (80-94); Mean Platelet Volume 8.3 fL (7.4-10.4); Platelet Count 121 10^3/uL (150-450); Red Blood Count 4.15 10^6 /uL (4.18-5.48); Red Cell Distribution Width 14 % (10-15); White Blood Count 15.3 10^3/uL (3.5-10.8)
[2020-05-26 10:14] LABS: Albumin 2.7 g/dL (3.2-5.2); Albumin/Globulin Ratio 1.1 (1-3); BUN/Creatinine Ratio 29.6 (8-20); Calcium 8.1 mg/dL (8.6-10.3); EGFR Non-African American 150.4 (>60); Globulin 2.4 g/dL (2-4); Potassium 3.8 mmol/L (3.5-5.0); Total Bilirubin 0.7 mg/dL (0.2-1.0); Total Protein 5.1 g/dL (6.4-8.9)
[2020-05-26 10:49] LABS: ABS Eosinophils 0.8 10^3/ul (0-0.6); ABS Lymphocytes 0.5 10^3/ul (1.0-4.8); ABS Monocytes 0.5 10^3/ul (0-0.8); ABS Neutrophils 13.5 10^3/ul (1.5-7.7); Lymphocyte % 3.2 %
[2020-05-26] MEDS: Enoxaparin 40 MG/0.4 ML SYR SUBCUT SCH (11:14)
[2020-05-26] MEDS ORDERED: Senna TAB 8.6 mg TAB PO SCH (12:00)
[2020-05-26] MEDS ORDERED: ZOSYN 3.375 GM Q6H - Intermittant 30 min Infusion IV SCH (13:30)
[2020-05-26 16:13] VITALS: BP 128/60
== END 2020-05-26 16:40 | disposition home or self-care (01) | DRG 329 ==
LOC: CHOA 10:10 → SSU 14:55
PROVIDERS: ADMIT Internal Medicine Hematology & Oncology; ATTEND Internal Medicine Hematology & Oncology

== ENCOUNTER 2020-06-22 12:20 | Inpatient (IN) ==
[2020-06-22 14:23] LABS: Albumin 2.8 g/dL (3.2-5.2); Albumin/Globulin Ratio 1.2 (1-3); BUN/Creatinine Ratio 19.2 (8-20); Calcium 8.2 mg/dL (8.6-10.3); EGFR African American 119.1 (>60); EGFR Non-African American 98.4 (>60); Globulin 2.4 g/dL (2-4); Magnesium 1.3 mg/dL (1.9-2.7); Potassium 3.7 mmol/L (3.5-5.0); Total Bilirubin 0.9 mg/dL (0.2-1.0); Total Protein 5.2 g/dL (6.4-8.9)
[2020-06-22] MEDS ORDERED: Magnesium Sulf 4 GM/100 ML IV 4,000 MG/100 ML BAG IVPB ONE (14:34)
[2020-06-22 14:36] LABS: Hematocrit 31 % (42-52); Hemoglobin 10.7 g/dL (14.0-18.0); Mean Corpuscular HGB Conc 35 g/dL (31-36); Mean Corpuscular Hemoglobin 31 pg (27-31); Mean Corpuscular Volume 88 fL (80-94); Platelet Count 125 10^3/uL (150-450); Red Blood Count 3.51 10^6 /uL (4.18-5.48); Red Cell Distribution Width 15 % (10-15); White Blood Count 4.4 10^3/uL (3.5-10.8)
[2020-06-22 14:49] LABS: ABS Lymphocytes 0.6 10^3/ul (1.0-4.8); ABS Monocytes 0.6 10^3/ul (0-0.8); ABS Neutrophils 3.2 10^3/ul (1.5-7.7); Eosinophil % 0.5 %; Lymphocyte % 14.4 %; Nucleated Red Blood Cells % 0.1
[2020-06-22] MEDS ORDERED: HYDROmorphone 1 MG/1 ML SYRINGE ONE (15:11)
[2020-06-22] MEDS ORDERED: Dexamethasone IV 4 MG/ML VIAL 1 ml VIAL ONE (15:11)
[2020-06-22] MEDS ORDERED: Enoxaparin 40 MG/0.4 ML SYR SUBCUT SCH (16:00)
[2020-06-22] MEDS ORDERED: NS 0.9% 1000 ml BAG 1,000 ML IV SCH (16:00)
[2020-06-22] MEDS: levETIRAcetam 500 MG IVPREMIX 500 MG/100 ML BAG IV SCH (18:18)
[2020-06-22] MEDS: Dexamethasone IV 4 MG/ML VIAL 1 ml VIAL IV SLOW PU SCH (21:43)
[2020-06-23] MEDS: levETIRAcetam 500 MG IVPREMIX 500 MG/100 ML BAG IV SCH ×2 (04:51→16:54)
[2020-06-23 05:51] LABS: Hematocrit 26 % (42-52); Hemoglobin 8.8 g/dL (14.0-18.0); Mean Corpuscular HGB Conc 34 g/dL (31-36); Mean Corpuscular Hemoglobin 30 pg (27-31); Mean Corpuscular Volume 88 fL (80-94); Mean Platelet Volume 8.5 fL (7.4-10.4); Platelet Count 98 10^3/uL (150-450); Red Blood Count 2.92 10^6 /uL (4.18-5.48); Red Cell Distribution Width 15 % (10-15); White Blood Count 3.5 10^3/uL (3.5-10.8)
[2020-06-23 06:05] LABS: Albumin 2.2 g/dL (3.2-5.2); Albumin/Globulin Ratio 0.9 (1-3); Calcium 7.9 mg/dL (8.6-10.3); EGFR African American 128.5 (>60); EGFR Non-African American 106.2 (>60); Globulin 2.4 g/dL (2-4); Potassium 3.6 mmol/L (3.5-5.0); Total Bilirubin 0.5 mg/dL (0.2-1.0); Total Protein 4.6 g/dL (6.4-8.9)
[2020-06-23] MEDS: Dexamethasone IV 4 MG/ML VIAL 1 ml VIAL IV SLOW PU SCH ×2 (07:39→20:54)
[2020-06-23] MEDS: Pantoprazole VIAL 40 MG VIAL IV SCH (07:39)
[2020-06-23 07:41] LABS: ABS Lymphocytes 0.4 10^3/ul (1.0-4.8); ABS Monocytes 0.3 10^3/ul (0-0.8); ABS Neutrophils 2.7 10^3/ul (1.5-7.7); Eosinophil % 0.2 %; Lymphocyte % 12.4 %; Nucleated Red Blood Cells % 0.1
[2020-06-23] MEDS ORDERED: Influenza VAC *QUAD* 2020-21* 0.5 ML SYRINGE IM ONE (09:00)
[2020-06-23 10:18] LABS: Magnesium 2.3 mg/dL (1.9-2.7)
[2020-06-23] MEDS ORDERED: LORazepam 2 mg VIAL 1 ml IV PUSH ONE (10:50)
[2020-06-23] MEDS ORDERED: Lorazepam PYXIS KEY PRN (10:50)
[2020-06-23 11:41] VITALS: BP 124/53
[2020-06-23] MEDS ORDERED: fentaNYL PATCH 12 MCG/HR 1 PATCH TRANSDERM SCH (14:00)
[2020-06-23] MEDS: Morphine 2 MG/ML SYRINGE IV PRN ×2 (15:41→23:06)
[2020-06-23] MEDS: Morphine ORAL CONCENTRATE 5 MG/0.25 ML ORAL.SYRIN SL PRN (17:28)
[2020-06-23] MEDS: fentaNYL Patch Check Q Shift NOTE FOLLOW UP SCH (19:10)
[2020-06-24] MEDS: Morphine 2 MG/ML SYRINGE IV PRN ×3 (05:05→20:37)
[2020-06-24] MEDS: levETIRAcetam 500 MG IVPREMIX 500 MG/100 ML BAG IV SCH ×2 (05:06→16:22)
[2020-06-24] MEDS: fentaNYL Patch Check Q Shift NOTE FOLLOW UP SCH ×2 (06:56→18:54)
[2020-06-24] MEDS: Dexamethasone IV 4 MG/ML VIAL 1 ml VIAL IV SLOW PU SCH ×2 (07:55→20:11)
[2020-06-24] MEDS: Pantoprazole VIAL 40 MG VIAL IV SCH (07:55)
[2020-06-24] MEDS: LORazepam 2 mg VIAL 1 ml IV PUSH PRN ×2 (16:48→20:36)
[2020-06-24] MEDS: Morphine ORAL CONCENTRATE 5 MG/0.25 ML ORAL.SYRIN SL PRN (19:54)
[2020-06-25] MEDS: Morphine 2 MG/ML SYRINGE IV PRN ×2 (00:45→05:01)
[2020-06-25] MEDS: levETIRAcetam 500 MG IVPREMIX 500 MG/100 ML BAG IV SCH (04:30)
[2020-06-25] MEDS: fentaNYL Patch Check Q Shift NOTE FOLLOW UP SCH (07:14)
[2020-06-25] MEDS: Pantoprazole VIAL 40 MG VIAL IV SCH (08:20)
[2020-06-25] MEDS: Dexamethasone IV 4 MG/ML VIAL 1 ml VIAL IV SLOW PU SCH (08:20)
[2020-06-25] MEDS: Morphine ORAL CONCENTRATE 5 MG/0.25 ML ORAL.SYRIN SL PRN ×2 (08:20→11:12)
[2020-06-25] MEDS ORDERED: Atropine 1% (ORAL/SL) 15 ML BTL SL PRN (10:33)
[2020-06-28] MEDS ORDERED: Scopolamine PATCH Remove NOTE PATCH OFF SCH (08:00)
== END 2020-06-25 12:15 | disposition expired | DRG 181 ==
LOC: CHOA 12:20 → MED 15:40
PROVIDERS: ADMIT Internal Medicine Hematology & Oncology; ATTEND Internal Medicine Hematology & Oncology